=== PATIENT | male | born 1955 | race Caucasian/White ===

== ENCOUNTER 2022-02-15 05:57 | Inpatient (IN) | payer OTHER ==
[~2022-02-15] VITALS: Ht 170.2 cm; Wt 101.6 kg
[~2022-02-15 05:57] MED LIST: CEPH500 PO; HYDACE5 PO; IBUP600 PO; OXYACE5T PO; RXCEPH500 PO; RXOXYACE PO; XARELTO15 MG PO; XARELTO20 MG PO
[2022-02-15] MEDS ORDERED: ASPI81CH (06:30)
[2022-02-15 07:09] LABS: BASOPHILS ABSOLUTE AUTO 0.06 K/mm3 (0.00-0.23); BASOPHILS PERCENT AUTO 0 % (0-2); EOSINOPHILS ABSOLUTE AUTO 0.02 K/mm3 (0.00-0.68); EOSINOPHILS PERCENT AUTO 0 % (0-6); Hemoglobin 16.1 g/dL (13.5-17.5); IMMATURE GRAN ABSOLUTE AUTO 0.06 K/mm3 (0.00-0.10); IMMATURE GRAN PERCENT AUTO 0 % (0-1); LYMPHOCYTES ABSOLUTE AUTO 1.22 K/mm3 (0.84-5.20); LYMPHOCYTES PERCENT AUTO 8 % (21-46); MONOCYTES ABSOLUTE AUTO 2.75 K/mm3 (0.16-1.47); MONOCYTES PERCENT AUTO 18 % (4-13); Mean Corpuscular HGB 31.3 pg (26.0-34.0); Mean Corpuscular HGB Conc 34.3 g/dL (31.5-36.5); Mean Corpuscular Volume 91 fL (80-100); Mean Platelet Volume 10.4 fL (9.1-12.4); NEUTROPHILS ABSOLUTE AUTO 11.61 K/mm3 (1.96-9.15); NEUTROPHILS PERCENT AUTO 74 % (41-73); Platelet Count 216 K/mm3 (150-400); Red Blood Cell Count 5.14 M/mm3 (4.30-5.90); White Blood Cell Count 15.72 K/mm3 (4.00-11.30)
[2022-02-15 07:18] LABS: Albumin, Blood 3.5 g/dL (3.4-5.0); Albumin/Globulin Ratio 0.8 (0.8-1.8); Bilirubin, Total 1.7 mg/dL (0.1-1.0); Bun/Creatinine Ratio 11.8 (12.0-20.0); Calcium, Blood 9.4 mg/dL (8.5-10.1); Creatinine, Blood 1.02 mg/dL (0.60-1.20); Globulin, Blood 4.2 g/dL (2.2-4.0); Potassium, Blood 3.9 mmol/L (3.5-5.5); Total Protein, Blood 7.7 g/dL (6.4-8.2)
--- NOTE | 2022-02-15 11:08 | NUR ---
PT BROUGHT TO [facility] FROM ER. History, Chart, Medications and Allergies reviewed before start of procedure.Patient confirms NPO status and agrees with scheduled surgery. Pre-Op teaching done. Pt verbalizes understanding.
--- NOTE | 2022-02-15 11:37 | NUR ---
02/15/22 1137 Marquise Anne PT RECIEVED ANTIBIOTICS PRIOR TO ARRIVAL TO OR.,
--- NOTE | 2022-02-15 12:53 | NUR ---
CARE TRANSFERED TO MAL RN AT THIS TIME.
--- NOTE | 2022-02-15 13:11 | NUR ---
ASSUMED CARE OF PT UPON HIS TRANSFER FROM PACU, S/P LP APPY. DENIES PAIN AND NAUSEA. ABLE TO TRANSFER FROM GURNEY TO BED WITH MINIMAL ASSIST. ABD LAP INCISIONS X 3 APPROXIMATED WITH DERMABOND, NO ERYTHEMA OTHER THAN NORMAL FOR POST OP, NO DRAINAGE. WILL WEAN O2.
[2022-02-15] MEDS ORDERED: AMOCLA875 PO ×2 (13:21→16:57)
[2022-02-15] MEDS ORDERED: OXYC10TA19 PO ×2 (13:21→16:55)
[2022-02-15 14:43] LABS: Source, Urine Clean Catch
[2022-02-15 14:45] LABS: Bilirubin, Urine Neg (Neg); Blood, Urine 1+ (Neg); Color, Urine Yellow (P-Yellow); Glucose Qualitative, Urine 2+ (Neg); Ketones, Urine Neg (Neg); Leukocyte Esterase, Urine 3+ (Neg); Nitrite, Urine Neg (Neg); Protein, Urine 1+ (Neg); Specific Gravity, Urine 1.015 (1.003-1.022); Urobilinogen, Urine NORM (Normal)
[2022-02-15 15:26] LABS: Appearance, Urine Hazy (Clear)
[2022-02-15 15:34] LABS: Bacteria Few /hpf; Red Blood Cells, Urine 0-2 /hpf (0-2); Squamous Epithelial Cells Few /hpf (Few); Uric Acid Crystals Few /hpf
--- NOTE | 2022-02-15 17:29 | NUR ---
PATIENT DISCHARGED TO HOME WITH . DENIES PAIN AND NAUSEA, TOLERATING PO INTAKE THUS FAR. IV SLINE LOCK REMOVED WITHOUT INCEIDENT. VERBALIZED UNDERSTANDING OF D/C INSTRUCTIONS, GIVEN HARD RX'S FOR ABX AND PAIN MEDS. OFF UNIT VIA W/C AT 1720. NO PERSONAL BELONGINGS LEFT BEHIND IN ROOM.
== END 2022-02-15 17:19 | disposition home or self-care (01) | DRG 343 ==
LOC: ER 05:57 → SURS 10:53
PROVIDERS: Emergency Medicine; ADMIT Surgery
PROC: 0DTJ4ZZ Resection of Appendix, Percutaneous Endoscopic Approach (ICD-10-PCS; principal; 2022-02-15 11:45)
DX: K35.80 Unspecified acute appendicitis (principal); N28.89 Other specified disorders of kidney and ureter; Z98.890 Other specified postprocedural states; Z79.82 Long term (current) use of aspirin
CPT/HCPCS: 36415; 74177; 80053; 81001; 83690; 85025; 87086; 88304; 96365-59; 96375; 99285-25; J1100; J1170; J1885; J2250; J2405; J2543; J2550; J2704; J2710; J2795; J3010; J7030; J7120; Q9967